=== PATIENT | female | born 1975 | race Hispanic/Latino ===

== ENCOUNTER 2017-05-20 15:19 | Emergency (ER) | payer MEDICAID, OTHER ==
[2017-05-20] MEDS ORDERED: ACETAMINOPHEN EXTRA STRENGTH 500 MG TABLET ONE (15:41)
== END 2017-05-20 16:11 | disposition home or self-care (01) ==
LOC: EDH 15:19
DX: B34.9 Viral infection, unspecified (principal); J11.1 Influenza due to unidentified influenza virus with other respiratory manifestations